=== PATIENT | female | born 1995 | race Caucasian/White ===

== ENCOUNTER 2017-04-19 19:30 | Emergency (ER) | payer BC ==
[2017-04-19] MEDS ORDERED: NS 0.9% 1000 ML* 1,000 ML IV ONE (19:51)
[2017-04-19 20:37] LABS: Hematocrit 44 % (35-47); Hemoglobin 14.6 g/dl (12.0-16.0); Mean Corpuscular HGB Conc 34 g/dl (31-36); Mean Corpuscular Hemoglobin 30 pg (27-31); Mean Corpuscular Volume 89 fL (80-97); Mean Platelet Volume 10 um3 (7.4-10.4); Red Blood Count 4.88 10^6/ul (4.0-5.4); Red Cell Distribution Width 13 % (10.5-15); White Blood Count 6.1 10^3/ul (3.5-10.8)
--- NOTE | 2017-04-19 20:48 | ED ---
Geovany Gallardo Rebecca, scribed for Martell Coon MD on 04/19/17 at 1954 . Syncope/Near Syncope - HPI Summary HPI Summary: Pt is a 21 y/o F BIBA who presents to ED c/o syncopal episode. 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 Reports lightheadedness prior to LOC. Sx aggravated by nothing, alleviated by spontaneous resolution. Notes mild confusion after the incident, though she feels well now. No prior similar episodes. States that the dining cort[place] was very warm. Believes she has been eating and drinking well today with her last meal at 1230. NKDA. LNMP started 4 days ago and is normal. - History Of Current Complaint Chief Complaint: EDSyncope Time Seen by Provider: 04/19/17 19:43 Hx Obtained From: Patient Onset/Duration: Sudden Onset, Resolved Context: Loss Of Consciousness Aggravating Factor(s): Nothing Alleviating Factor(s): Spontaneous Resolution Associated Signs And Symptoms: Lightheadedness - Prior to LOC, Other - Confusion after episode - resolved - Allergies/Home Medications Allergies/Adverse Reactions: Allergies Allergy/AdvReac Type Severity Reaction Status Date / Time No Known Allergies Allergy Verified 04/19/17 19:48 PMH/Surg Hx/FS Hx/Imm Hx Previously Healthy: Yes Endocrine/Hematology History: Denies: Hx Diabetes Cardiovascular History: Denies: Hx Hypertension Infectious Disease History: No Infectious Disease History: Denies: Traveled Outside the [place] in Last 30 Days - Family History Known Family History: Negative: Cardiac Disease, Hypertension, Diabetes - Social History Occupation: Student Alcohol Use: None Substance Use Type: Reports: None Smoking Status (MU): Never Smoked Tobacco Review of Systems Positive: Other - Confusion after LOC - resolved Neurological: Other - Lightheadedness prior to LOC Positive: Syncope - Positive LOC - resolved All Other Systems Reviewed And Are Negative: Yes Physical Exam Triage Information Reviewed: Yes Vital Signs On Initial Exam: Initial Vitals Temp Pulse Resp BP Pulse Ox 98.9 F 81 16 153/82 100 04/19/17 19:42 04/19/17 19:42 04/19/17 19:42 04/19/17 19:42 04/19/17 19:42 Vital Signs Reviewed: Yes Appearance: Positive: Well-Appearing, No Pain Distress Skin: Positive: Warm Head/Face: Positive: Normal Head/Face Inspection Eyes: Positive: B[place] ENT: Positive: Hearing grossly normal Neck: Positive: Supple Respiratory/Lung Sounds: Positive: Clear to Auscultation, Breath Sounds Present Cardiovascular: Positive: RRR. Negative: Murmur Abdomen Description: Positive: Nontender, Soft Bowel Sounds: Positive: Present Musculoskeletal: Positive: Strength/ROM Intact Neurological: Positive: Alert, Oriented to Person Place, Time, Normal Gait Psychiatric: Positive: Affect/Mood Appropriate Diagnostics - Laboratory Result Diagrams: 04/19/17 20:25 04/19/17 20:25 Lab Statement: Any lab studies that have been ordered have been reviewed, and results considered in the medical decision making process. - EKG 1942 Cardiac Rate: NL - 85 bpm EKG Rhythm: Sinus Rhythm EKG Interpretation: Normal Re-Evaluation - Re-Evaluation First Eval Re-Evaluation Time: 21:58 Change: Improved Comment: Discussed D/C plan with the pt. Course/Dx Assessment/Plan: Pt is a 21 y/o F BIBA who presents to ED c/o syncopal episode. 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 Reports lightheadedness prior to LOC. Sx aggravated by nothing, alleviated by spontaneous resolution. Notes mild confusion after the incident, though she feels well now. No prior similar episodes. States that the dining [place] was very warm. Believes she has been eating and drinking well today with her last meal at 1230. NKDA. LNMP started 4 days ago and is normal. EKG is sinus rhythm with no acute changes. Lab work and UA were done. In the ED course , pt was given fluids. Pt will be D/C to home with Dx of syncope and a follow up with her PCP. She undestands and agrees. Elevated BP noted and advised to f/ u with PCP. - Diagnoses Provider Diagnoses: Syncope Discharge - Discharge Plan Condition: Stable Disposition: HOME Patient Education Materials: Syncope (ED) Referrals: [facility] [Primary Care Provider] - 3 Days The documentation as recorded by the Geovany wallace Rebecca accurately reflects the service I personally performed and the decisions made by me, Martell Coon MD.
[2017-04-19 20:52] LABS: ALT 9 U/L (7-52); AST 15 U/L (13-39); Albumin 4.9 g/dL (3.2-5.2); Alkaline Phosphatase 46 U/L (34-104); Anion Gap 9 mmol/L (2-11); BUN/Creatinine Ratio 15.3 (8-20); Blood Urea Nitrogen 13 mg/dL (6-24); CO2 Carbon Dioxide 25 mmol/L (22-32); Chloride 104 mmol/L (101-111); EGFR African American 110.8 (>60); EGFR Non-African American 86.2 (>60); Globulin 3.1 g/dL (2-4); Glucose 98 mg/dL (70-100); Magnesium 1.9 mg/dL (1.9-2.7); Potassium 3.9 mmol/L (3.5-5.0); Sodium 138 mmol/L (133-145)
[2017-04-19 21:46] LABS: TSH (Thyroid Stimulating Horm) 0.49 mcIU/mL (0.34-5.60)
[2017-04-19 21:47] LABS: Urine Bacteria Absent (Absent); Urine Bilirubin Negative (Negative); Urine Glucose Negative (Negative); Urine Nitrite Negative (Negative)
[2017-04-19 22:18] VITALS: BP 127/76
== END 2017-04-19 22:23 | disposition home or self-care (01) ==
LOC: ED 19:30
DX: R55 Syncope and collapse (principal)
CPT/HCPCS: 36415; 80053; 81003; 81015; 83605; 83735; 84443; 84702; 85025; 93005; 96360; 99283